=== PATIENT | male | born 1950 | race Caucasian/White ===

== ENCOUNTER 2016-09-10 12:45 | Inpatient (IN) | payer MEDICARE, OTHER ==
--- NOTE | ~2016-09-10 | HP ---
History And Physical [address] [address] [place]. [address] NAME: LORETO STAFFORD : 50 STATUS : ADM IN [facility]#: [id number] AGE: 65 ADM/REG DATE : 09/10/16 MR#: [id number] REPORT SERV DATE: 09/11/16 DICTATED BY: SHERIE MCCRAY DATE: 09/10/16 REPORT STATUS : Draft TRANSCRIBED BY: MODL DATE: 09/10/16 DATE OF ADMISSION: 09/10/2016 REASON FOR ADMISSION: Stroke. HISTORY OF PRESENT ILLNESS: Mr. Stafford is a 65-year-old male with peripheral arterial disease, atrial fibrillation, neurofibromatosis, hypertension, history of prior stroke and VA in September of last year, who presents to the emergency department today with left upper extremity and left lower extremity weakness and numbness. The patient says that last Wednesday he had episode that lasted about 5 minutes with inability to use his left arm. This got better completely and no further medical attention took place until this morning when he awoke at about 0400 hours and realized as there is some numbness and weakness of his left side, however, he went back to sleep, and then at 10 a.m., he was unable to arise from bed at all. He had a great deal of difficulty getting up even with assistance getting down the stairs to get into the emergency department. The patient does have difficulty walking, but no speech or swallowing changes. No chest pain or palpitations. He has baseline right upper extremity weakness from his prior stroke. Mild left-sided headache is noted, but no visual changes. No shortness of breath, coughing, or wheezing. No nausea or vomiting. No gastrointestinal complaints. No leg swelling. Some mild dizziness and confusion are noted. REVIEW OF SYSTEMS: The remainder of review of systems is negative. PAST MEDICAL HISTORY: As mentioned above. He had normal ejection fraction a few months ago without wall motion abnormalities. MEDICATIONS: Norvasc, Lipitor, chlorthalidone, B12, Pradaxa, Pepcid, hydralazine, lisinopril, metoprolol, primidone, and Zoloft. ALLERGIES: TO NICKEL. FAMILY HISTORY: Positive for neurofibromatosis and stroke. SOCIAL HISTORY: The patient is a remote smoker. PHYSICAL EXAMINATION: VITAL SIGNS: Blood pressure is 98/54, pulse of 55, respirations 18, afebrile, sat 95%. GENERAL: Comfortable white male, oriented to 3. In no apparent distress. HEENT: Pupils are equal and reactive to light. Extraocular movements are intact. No cranial nerve deficits. Moist mucous membranes. Normal oropharynx. Neurofibromas were noted throughout his face, neck, limbs, and trunk. NECK: Revealed no jugular venous distention, carotid bruits, lymphadenopathy, or goiter. CARDIAC: Irregular rate and rhythm. No murmurs, gallops, or rubs. LUNGS: Clear to auscultation bilaterally. Good excursion. ABDOMEN: Soft and nontender. Bowel sounds are normal and active. EXTREMITIES: No cyanosis, clubbing, or edema. Good pulses and capillary refill. History And Physical [address] [place]. [address] NAME: LORETO STAFFORD : 50 STATUS : ADM IN [facility]#: [id number] AGE: 65 ADM/REG DATE : 09/10/16 MR#: [id number] REPORT SERV DATE: 09/11/16 DICTATED BY: SHERIE MCCRAY DATE: 09/10/16 REPORT STATUS : Draft TRANSCRIBED BY: MICHAEL DATE: 09/10/16 NEUROLOGIC: He had 4/5 strength in the right transportation dispatcher, but diminished [id number] on the right side. Both of these are old. He had pronator drift, however, in the left upper extremity with normal transportation dispatcher strength. He had 5/5 strength in the right lower extremity and only 3/5 strength in left lower extremity, which is new. Sensory function was intact. SKIN: Warm and dry except for neurofibromas. PSYCHIATRIC: Appropriate. LABORATORY EVALUATION: Sodium 141, potassium 4.2, chloride 107, bicarb 25, BUN 29, creatinine 1.1, glucose 100. White count 10,000, hemoglobin and hematocrit are 15 and 45, platelets 198. IMAGING: Chest x-ray showed no apparent disease. EKG reviewed by me showed normal sinus rhythm with T-wave inversion in lead aVL. I do not have an older note to which to compare. CT of the brain revealed multiple strokes of varying age including the right basal ganglia, bilateral occipital lobes, and right internal capsule. ASSESSMENT AND PLAN: Stroke, likely due to atrial fibrillation despite Pradaxa therapy. He had normal carotid ultrasonography a year ago. No MRA was done. There is a possibility of intracranial stenoses; however, it is unclear the therapeutic implications. Aspirin will be added to his regimen. We will continue the Pradaxa therapy. Continue high dose Lipitor. It should be noted that his blood pressure is relatively low on 5-drug therapy. We will actually hold off on his calcium channel flores and thiazide, although with diminishing of COLT inhibitor, beta-flores and vasodilator, I think the blood pressure will rise to a goal of 160 in this setting. We anticipate physical therapy, occupational therapy, and rehabilitation over the next couple of days. Other issues appear stable. RSM/MODL Sherie Mccray M.D. / [id number] CC: Tristan Pressley MD
--- NOTE | ~2016-09-10 | DS ---
Discharge Summary [facility] [address] [place]. [address] NAME: LORETO NAVARRO : 50 STATUS : DIS IN PAT#: [id number] AGE: 65 ADM/REG DATE : 09/10/16 MR#: [id number] REPORT SERV DATE: 09/15/16 DICTATED BY: SHERIE MCCRAY DATE: 09/14/16 REPORT STATUS : Draft TRANSCRIBED BY: MICHAEL DATE: 09/14/16 ADMISSION DATE: 09/10/2016 DISCHARGE DATE: 09/14/2016 PRINCIPAL DIAGNOSIS: Stroke affecting the left hemisphere. SECONDARY DIAGNOSES: Late affects of previous CVA, bilateral carotid artery siphon stenosis, hypertension, atrial fibrillation, neurofibromatosis, hyperlipidemia. PRESENT ILLNESS: Please see my dictation 09/10/2016. HOSPITAL COURSE: Admitted with recurrent stroke, despite adequate anticoagulation, good blood pressure, and cholesterol control. The patient blood pressure is allowed to elevate and other sources of stroke was tried to be elucidated, and MRA was done revealing a bilateral carotid artery siphon stenosis. He was seen by Vascular Surgery who did not feel that we could access this area of the cerebrovascular anatomy at this location but that, that may be able to take place at [place]. The patient meanwhile underwent physical therapy. His left sided symptoms improved significantly, although he continued to have left lower extremity weakness. He went to [facility], and he was to be discharged following discharge from [facility] following up with Dr. Conroy of [facility] and then also with Dr. Tin Hunt at that time. Continue Lopressor 12.5 b.i.d., which is a reduction due to low heart rate, chlorthalidone 25, Prinivil 40 daily, hydralazine 50 b.i.d., Pepcid 20 daily, vitamin B12 daily, aspirin, Zoloft, Mysoline, Pradaxa, Lipitor 40 at bedtime. His LDL was already maximally suppressed at 21 upon admission. Greater than 30 minutes spent in the care of this patient and discharge planning on discharge day. IVANA/MICHAEL Sherie Mccray M.D. / [id number] CC: Sherie Mccray M.D. MD Jeronimo Cha M.D., PhD.
[~2016-09-10 12:45] MED LIST: ALEVE220 MG PO; ALLEGRA180 PO; ALLERGY MEDICINE; APRES50 PO; ASAB PO; B12250T PO; BENICAR HCT1 TA1 PO; BUSPAR15 M1 PO; COZAAR100 MG PO; DCN100 PO; FISH-EPA1000 MG PO; HYDROCHLOROT12.5 MG PO; LIPITOR40 PO; LOFIB160 PO; LOP50 PO; NORV10 PO; PLAVIX PO; PRADAXA150 MG PO; PRAVAC PO; PRIN10 PO; TOPXL25 PO; VITAMIN B-121000 MC1 SL; [UNRECOGNIZED DRUG - OTHER]
[2016-09-10 12:48] LABS: BASOPHILS 0.3 %; BASOPHILS ABSOLUTE 0.03 10/3/uL (0.0-0.16); EOSINOPHILS 1.9 %; EOSINOPHILS ABSOLUTE 0.18 10/3/uL (0.0-0.53); ER CBC TAT 0 Hrs 03 Mins; HEMATOCRIT 46.5 % (40.0-51.0); HEMOGLOBIN 15.8 g/dL (13.6-17.8); IMMATURE GRANULOCYTES 0.2 %; IMMATURE GRANULOCYTES ABSOLUTE 0.02 10/3/uL (0.0-0.11); LYMPHOCYTES 9.7 %; LYMPHOCYTES ABSOLUTE 0.93 10/3/uL (0.67-4.30); MEAN CORPUSCULAR HEMOGLOB 28.3 pg (26.0-34.0); MEAN CORPUSCULAR VOLUME 83.2 fL (80-100); MEAN PLATELET VOLUME 10.6 fL (9.2-13.0); MONOCYTES 9.8 %; MONOCYTES ABSOLUTE 0.94 10/3/uL (0.21-1.20); NEUTROPHILS 78.1 %; NEUTROPHILS ABSOLUTE 7.51 10/3/uL (2.02-8.40); PLATELET COUNT 198 10/3/uL (150-400); RBC DISTRIBUTION WIDTH 14.6 % (12.0-16.0); RED CELL COUNT 5.59 10/6/uL (4.7-6.1); WHITE BLOOD CELLS 9.6 10/3/uL (4.5-10.5)
[2016-09-10 12:49] LABS: MANUAL DIFF NO %
[2016-09-10 12:56] LABS: INTERNATIONAL NORMAL RATI 1.4 UNITS (-); PARTIAL THROMBO TIME 40.3 SEC (22.5-37.2); PROTIME (NOT ORD) 17.1 SEC (12.0-14.5)
[2016-09-10 13:07] LABS: A/G RATIO 0.8 (0.7-1.9); ALBUMIN 3.8 G/DL (3.5-5.0); ALKALINE PHOSPHATASE 78 U/L (45-117); BUN (BLOOD UREA NITROGEN) 29 MG/DL (6-23); CALCIUM, SERUM 9.4 MG/DL (8.5-10.4); CHLORIDE, SERUM 107 MMOL/L (96-112); CO2 (CARBON DIOXIDE) 25 MMOL/L (24-34); CREATININE 1.12 MG/DL (0.70-1.30); GFR AFRICAN AMERICAN 79 ML/MIN (>=60); GFR NON AFRICAN AMERICAN 69 ML/MIN (>=60); GLOBULIN 4.6 G/DL (2.5-4.1); GLUCOSE, SERUM 100 MG/DL (60-99); POTASSIUM, SERUM 4.2 MMOL/L (3.5-5.3); SGOT(AST) 14 U/L (5-40); SGPT(ALT) 22 U/L (5-65); SODIUM, SERUM 141 MMOL/L (135-148); TOTAL BILIRUBIN 0.7 MG/DL (0-1.2); TOTAL PROTEIN 8.4 G/DL (6.0-8.5); TROPONIN I <0.02 NG/ML (<0.05)
[2016-09-10] MEDS ORDERED: CYANO1000T PO (13:55)
[2016-09-10] MEDS ORDERED: NORV10 PO (13:56)
[2016-09-10] MEDS ORDERED: HYGROTON 25 MG25 MG PO (13:56)
[2016-09-10] MEDS ORDERED: PEP20 PO (13:56)
[2016-09-10] MEDS ORDERED: LIPITOR40 PO (13:56)
[2016-09-10] MEDS ORDERED: APRES50 PO (13:57)
[2016-09-10] MEDS ORDERED: ZESTRIL40 MG PO (13:57)
[2016-09-10] MEDS ORDERED: LOP50 PO (13:57)
[2016-09-10] MEDS ORDERED: PRIM50B PO (13:58)
[2016-09-10] MEDS ORDERED: ZOL50 PO (13:58)
[2016-09-10] MEDS ORDERED: PRADAXA150 MG PO (13:58)
[2016-09-10 16:07] LABS: CHOL/HDL RATIO(NOT ORDER) 2.4 (0-5); CHOLESTEROL 91 MG/DL (< 200); HDL CHOLESTEROL 38 MG/DL (> 39); LDL CHOLESTEROL 21 MG/DL (< 130); NON-HDL CHOLESTEROL 53 MG/DL (< 160); TRIGLYCERIDE 163 MG/DL (< 150)
[2016-09-10 19:50] LABS: TROPONIN I <0.02 NG/ML (<0.05)
[2016-09-10 19:52] LABS: CK-MB < 0.5 NG/ML; CPK 30 U/L (0-200)
[2016-09-11 06:13] LABS: ASCORBIC ACID (UR NOT ORDER) NEG (NEG); BILIRUBIN, URINE NEGATIVE (NEG); KETONE, URINE NEGATIVE (NEG); LEUKOCYTE ESTERASE(NOT OR NEG (NEG); WBC (NOT ORDERED) (RFLEX) < 1 (0-5)
[2016-09-11 09:08] LABS: CPK 39 U/L (0-200); TROPONIN I <0.02 NG/ML (<0.05)
[2016-09-11 09:11] LABS: CK-MB 1.2 NG/ML
[2016-09-11 13:22] LABS: TROPONIN I <0.02 NG/ML (<0.05)
[2016-09-11 13:24] LABS: CK-MB 0.8 NG/ML
[2016-09-11 13:29] LABS: CPK 121 U/L (0-200)
[2016-09-14 05:11] LABS: CHLORIDE, SERUM 108 MMOL/L (96-112); CO2 (CARBON DIOXIDE) 24 MMOL/L (24-34); CREATININE 1.36 MG/DL (0.70-1.30); GFR AFRICAN AMERICAN 63 ML/MIN (>=60); GFR NON AFRICAN AMERICAN 54 ML/MIN (>=60); GLUCOSE, SERUM 101 MG/DL (60-99); SODIUM, SERUM 141 MMOL/L (135-148)
[2016-09-14 05:14] LABS: BUN (BLOOD UREA NITROGEN) 34 MG/DL (6-23); POTASSIUM, SERUM 4.8 MMOL/L (3.5-5.3)
== END 2016-09-14 16:52 | DRG 65 ==
LOC: ER 12:45 → 1SO 13:53
PROVIDERS: Emergency Medicine; Internal Medicine
DX: I63.233 Cerebral infarction due to unspecified occlusion or stenosis of bilateral carotid arteries (principal); G81.94 Hemiplegia, unspecified affecting left nondominant side; I69.351 Hemiplegia and hemiparesis following cerebral infarction affecting right dominant side; I48.91 Unspecified atrial fibrillation; I73.9 Peripheral vascular disease, unspecified; K21.9 Gastro-esophageal reflux disease without esophagitis; E78.5 Hyperlipidemia, unspecified; I10 Essential (primary) hypertension; Q85.00 Neurofibromatosis, unspecified; I25.2 Old myocardial infarction; Z87.891 Personal history of nicotine dependence; Z79.01 Long term (current) use of anticoagulants; Z79.899 Other long term (current) drug therapy; Z91.048 Other nonmedicinal substance allergy status; Z91.81 History of falling
CPT/HCPCS: 70450; 70544; 70548; 70551-52; 71020; 80048; 80053; 80061; 81001; 82550; 82553; 83036; 83735; 84484; 85025; 85610; 85730; 93005; 97110-GP; 97116-GP; 97162-GP; 97165-GO; 97530-GP; 99285; A9270-GY; A9577; C8929; G8978-CK-GP; G8979-CI-GP; G8987-CJ-GO; G8988-CI-GO; Q9957